=== PATIENT | male | born 1945 | race Caucasian/White ===

== ENCOUNTER 2018-05-09 06:17 | Inpatient (IN) ==
[~2018-05-09 06:17] MED LIST: MORPHINE SULFATE 15 MG TABLET.SA PO PRN; ROPIVACAINE HCL/PF 100 MG, EPINEPHrine 0.2 MG, KETOROLAC TROMETHAMINE 30 MG in NORMAL S... IJ PRN; TRANEXAMIC ACID 1,000 MG in NORMAL SALINE 100 ML IV PRN; ceFAZolin SODIUM 1 GM VIAL IV PRN
[2018-05-09] MEDS: RINGER'S SOLUTION,LACTATED 1,000 ML IV PRN ×2 (07:08→09:23)
--- NOTE | 2018-05-09 07:22 | ANES ---
Anesthesia Pre Procedure Eval Vitals/Labs: Last Vital Signs Temp 36.9 C 05/09/18 06:35 Pulse 63 05/09/18 06:35 Resp 16 05/09/18 06:35 BP 156/83 H 05/09/18 06:35 Pulse Ox 97 05/09/18 06:35 HOME MEDICATIONS Ascorbic Acid [Vitamin C] 1,000 mg PO DAILY 05/01/14 [Last Taken Unknown] Garlic [Odor Free Garlic] 1,000 mg PO DAILY 05/01/14 [Last Taken Unknown] Hydrochlorothiazide [Microzide] 12.5 mg PO DAILY 05/01/14 [Last Taken 05/09/18 04:00] Labetalol HCl [Trandate] 200 mg PO BID 05/01/14 [Last Taken 05/09/18 04:00] Lisinopril [Prinivil] 20 mg PO BID 05/01/14 [Last Taken 05/09/18 04:00] Multivitamins [Multivitamin Brigido] 1 cap PO DAILY 05/01/14 [Last Taken Unknown] Potassium Chloride [K-Dur] 20 meq PO DAILY 05/01/14 [Last Taken Unknown] Spironolactone [Aldactone] 25 mg PO DAILY 05/01/14 [Last Taken 05/09/18 04:00] rOPINIRole HCL [Requip] 1 mg PO HS 05/01/14 [Last Taken Unknown] Calcium Carbonate/Vitamin D3 [Calcium 600 + D Tablet] 1 ea PO DAILY 05/13/15 [Last Taken Unknown] clonazePAM [Klonopin] 1 mg PO HS 05/13/15 [Last Taken Unknown] simvastatin 20 mg tablet 20 mg PO HS #90 tab 02/06/18 [Last Taken Unknown] clotrimazole 1 % topical cream 1 applic TP BID 28 Days #28 g 03/23/18 [Last Taken Unknown] levothyroxine 75 mcg tablet 75 mcg PO DAILY #90 tab 03/28/18 [Last Taken Unknow n] amlodipine 10 mg tablet 10 mg PO DAILY #90 tab 05/04/18 [Last Taken 05/09/18 04:00] Allergies/Adverse Reactions: Allergies Allergy/AdvReac Type Severity Reaction Status Date / Time No Known Allergies Allergy Verified 05/09/18 06:46 - Planned Procedure Planned Procedure: L Arthroplasty Total Hip Cement/Non-Cement Medication List Reviewed:: Yes Allergies Verified: Yes Medical History (Last Reviewed 05/09/18 @ 07:17 by Fan Denis CRNA) Bilateral carpal tunnel syndrome Onset Date: ~03/2015 Edema Onset Date: ~2007 Erectile dysfunction Onset Date: Unknown History of colonic polyps Onset Date: Unknown Hyperlipidemia Onset Date: ~12/2012 Hypertension Onset Date: ~12/2012 Hypokalemia Onset Date: Unknown Hypothyroid Onset Date: ~12/2012 Malignant neoplasm prostate Onset Date: ~12/2012 Obesity Onset Date: Unknown Obstructive sleep apnea Onset Date: ~12/2012 Restless leg syndrome Onset Date: ~12/2012 Stress bladder incontinence, male Onset Date: Unknown Surgical History (Last Reviewed 05/09/18 @ 07:17 by Fan Denis CRNA) H/O prostatectomy Onset Date: ~2010 History of appendectomy Onset Date: Unknown History of bilateral carpal tunnel release Onset Date: ~03/2015 History of esophageal dilatation Onset Date: ~09/2011 History of esophagogastroduodenoscopy (EGD) Onset Date: ~09/2011 History of tonsillectomy Onset Date: Unknown Hx laparoscopic cholecystectomy Onset Date: ~2004 Hx of total knee arthroplasty Onset Date: ~05/2015 Normal colonoscopy Onset Date: ~05/2014 History of facial surgery Onset Date: 01/2018 skin cancer removed from forehead by Dr. Martinez Family History (Last Reviewed 05/09/18 @ 07:18 by Fan Denis CRNA) Father , age 70 Cancer cancer of unknown origin Hypertension Mother Hypothyroidism Cancer leukemia Sister , age 70's Cirrhosis of liver - Family Anesthesia History Family History:: no untoward family reactions to anesthesia, no familial bleeding tendencies, no family history of clotting disorders, no family history of premature - Airway/Neck/Teeth Within Normal Limits:: Yes Teeth Condition: Intact, Incisor Notching Mallampatti Score: 2 Thyromental (T-M) distance: > 6 cm Mandibulo Hyoid distance: > 3 cm - Respiratory Respiratory: lungs clear Smoking Status: Never smoker Discussed smoking cessation including day of surgery: No Sleep Apnea currently treated: Yes Sleep Apnea by current assessment: No Discussed Risks/Treatment of COLTON: No - Cardiovascular Tolerates Activity: Fair Heart Sounds: S1 & S2, Regular - Anesthesia Assessment and Plan ASA Class: PS, II Anesthesia Type Plan: Spinal
[2018-05-09] MEDS ORDERED: MAGNESIUM HYDROXIDE 30 ML UDC PO PRN (09:51)
[2018-05-09] MEDS ORDERED: ONDANSETRON HCL/PF 2 MG/ML VIAL IV PRN (09:51)
[2018-05-09] MEDS ORDERED: MAG HYDROX/ALUMINUM HYD/SIMETH 30 ML UDC PO PRN (09:51)
[2018-05-09] MEDS ORDERED: diphenhydrAMINE HCL 50 MG/ML VIAL IV PRN (09:51)
[2018-05-09] MEDS ORDERED: MORPHINE SULFATE 2 MG/ML DISP.SYRIN IV PRN (09:51)
[2018-05-09] MEDS ORDERED: ACETAMINOPHEN 500 MG TABLET PO PRN (09:51)
[2018-05-09] MEDS ORDERED: ZOLPIDEM TARTRATE 5 MG TABLET PO PRN (09:51)
--- NOTE | 2018-05-09 09:59 | OR ---
Operative Report - Dictated Report Narrative: Date: 05/09/2018 Preoperative diagnosis: Left hip degenerative joint disease. Postoperative diagnosis: Left hip degenerative joint disease. Procedure: Left Total hip arthroplasty. Surgeon: Pepe Beaulieu M.D. Plant Care Worker: Apolinar Nolasco PA-C Anesthesia: Spinal and local periarticular joint injection. Complications: None Specimens: Bone for disposal. Estimated blood loss: 100 milliliters. Retained implants: Depuy Landis size 5 femoral stem high offset. Size 54 millimeter outside diameter 3-hole [place] Gription acetabular cup. 54 millimeter outside by 36 millimeter inside diameter highly cross-linked acetabular liner. 36 millimeter diameter +8.5 millimeter cobalt chromium femoral head. Cancellous 6.5mm screw 30 millimeter length Indications: Mr. Jama is a 73-year-old gentleman who has had long-standing left hip pain and arthrosis. This patient was followed in my clinic for period of time with significant complaints of left hip pain consistent with arthritic changes. He failed conservative measures including but not limited to activity modification, passage of time, medications, and other conservative measures. Patient wished to proceed with surgical treatment. The risks, benefits, and alternatives were discussed in clinic. The risks of , blood clots, bleeding, infection, nerve/tendon blood vessel/ injury, malposition of components, dislocation and/or instability of joint, intraoperative fracture, postoperative limited range of motion, persistent pain, failure of components, and need for additional procedures. Patient wished to proceed. Consent was obtained after answering all questions. Procedure: After marking the correct extremity on the floor, the patient was taken to the operating room. A timeout was performed. IV antibiotics consisting of Ancef were administered prior to the procedure. A spinal anesthetic was induced by anesthesia. A Salas catheter was inserted. The patient was then transitioned to a lateral position on a well-padded pegboard. An axillary roll was placed. The head was in neutral position. The non- operative down leg was well-padded with SCD and JOHNNY hose in place. The arms were supported and padded to protect from any undue pressure on the bony prominences and nerves. A well-padded anterior and posterior pelvic and chest posts were secured in order to maintain a stable position of the pelvis. This was placed so that the pelvis was perpendicular to the floor. The body was in line with the pelvis. Once it was felt that we had protected all the bony prominences and the patient was well secured with a safety belt as well, the leg was pre-scrubbed with alcohol, prepped and draped in a standard sterile fashion. A standard anterior lateral hip incision was marked out over the greater trochanter. Ioban drapes were then placed. The skin incision was then made. Sharp dissection with a scalpel utilizing cautery for hemostasis was carried out down to the gluteus and iliotibial band fascia. This was split in line with the skin incision. The greater trochanter bursa was excised. The anterior and posterior margins of the abductor tendon were identified. The anterior 1/2-1/3 of the tendon was tagged and reflected off the greater trochanter leaving a sleeve of tendon for repair at the completion of the case. This exposed the underlying hip joint capsule. A limb length stitch was placed in the skin and referencedd off a veronique on the greater trochanter for evaluation of intraoperative limb lengths. An inverted T-type capsulotomy was made extending this up to the brim of the acetabulum. Using Homans to assist with elevation of the soft tissues off the anterior, superior, and inferior aspects of the femoral neck, the hip was then placed in a figure 4 position and the femoral head was dislocated. With the leg in an externally rotated and adducted position, the cutting flag was utilized in order to veronique for a standard femoral neck cut approximately a fingerbreadth above the level of the lesser trochanter. This was done with reference to pre-operative films and overall alignment. This was done while protecting the surrounding soft tissues with Homans. The femoral head was then removed and sized for guidance on preparation of the acetabulum. It was noted that there was loss of articular cartilage on both the femoral head and weightbearing portions of the acetabulum. We then returned the leg to the table and turned our attention to the acetabulum. While protecting the surrounding soft tissues, the labrum and remaining tissue in the fovea were excised using a scalpel and cautery. A series of reamers up to size 54 millimeter were utilized to prepare the acetabulum. The final reamer had good purchase and exposed the bleeding subchondral bone. The acetabulum was then thoroughly irrigated ensuring that all bony and cartilaginous materials were removed, and the final acetabular shell was impacted into place. This was placed in approximately 45 degrees of abduction and 20 degrees of anteversion utilizing the outrigger and body axis for alignment. This had a good press fit. 1 6.5mm cancellous screw was placed in the superior posterior quadrant of the acetabulum. The shell was then thoroughly irrigated and the final polyethylene was impacted into place ensuring that it seated completely. This was then protected with a sponge while we returned our attention to the femur. With the leg in a figure 4 position, utilizing Homans for soft tissue protection, a box cutting osteotome, followed by Charnley awl, followed by serial reamers and broaches were utilized in order to prepare the femur. It was found that a size 5 broach gave good axial and rotational stability. The calcar reamer was utilized in order to clean up the cut edges. The proximal femur was visualized to ensure that there were no signs of fracture. A series of heads and necks were trialed. It was found that a high offset neck and a + 8.5 femoral head gave good overall stability. There was minimal longitudinal instability. With the leg in the position of sleep, the femoral head was well covered. Hip range of motion was able to reach full extension and external rotation to greater than 75 degrees prior to impingement along the posterior acetabulum. The hip was able to be flexed to greater than 90 degrees with internal rotation greater than 60 degrees prior to anterior impingement. The limb lengths were near equal based on comparison to the contralateral side and the prior placed limb length stitch. At this point it was felt these were the appropriately sized femoral components as well as neck and femoral head. The trial implants were removed. The femur was thoroughly irrigated. The final implants were impacted into place, and the hip was reduced. After ensuring that there was no damage to the proximal femur, the standard periarticular joint injection of ropivacaine, Toradol, and epinephrine were injected into the joint capsule and surrounding soft tissues. Anesthesia then administered intravenous tranexamic acid. The capsule was repaired with a single interrupted #1 Vicryl. The abductor tendon was repaired to the greater trochanter utilizing #5 Ethibond through drill holes. This was oversewn with #1 Vicryl. The fascia was closed with interrupted #1 Vicryl. The wounds were thoroughly irrigated as we closed in layers. The deep and subcutaneous fat layers were closed with 0 and 3-0 Vicryl respectively. The subcutaneous tissue was closed with a running 3-0 Vicryl and the skin with running 3-0 Monocryl subcutaneous and liliam. All sponge, needle, blade, and instrument counts were correct prior to closing the wounds. Sterile dressings consisting of Xeroform, 4 x 4's, and tape were applied. The patient was awoken and transferred to her hospital bed and then to the postanesthesia care unit in stable condition. Postoperative condition: The plan is to admit to the medical/surgical inpatient floor postoperatively. There will be a projected 1 to 3 day hospital stay. Postoperatively 24 hours of IV antibiotics, pain control, physical therapy, occupational therapy, and medical comanagement will be utilized. Patient will be weightbearing as tolerated with anterior hip precautions. Postoperative films will be obtained in the recovery room.
--- NOTE | 2018-05-09 10:07 | ANES ---
Post Anesthesia Discharge - Transfer of Care Transfer of Care handoff given to nurse: Yes - Discharge from PACU Discharge from PACU when meets criteria: Yes - Discharge to ASU Discharge to ASU-no complications/pt stable: Yes
[2018-05-09] MEDS: KETOROLAC TROMETHAMINE 15 MG/ML VIAL IV SCH ×3 (11:35→21:04)
[2018-05-09] MEDS: ceFAZolin SODIUM 1 GM in DEXTROSE 5 % IN WATER 50 ML IV SCH ×4 (11:36→17:03)
[2018-05-09] MEDS: DEXTROSE 5%-LACTATED RINGERS 1,000 ML IV PRN ×2 (12:35→21:14)
[2018-05-09] MEDS: oxyCODONE HCL/ACETAMINOPHEN 1 TAB TABLET PO PRN ×2 (12:43→19:31)
--- NOTE | 2018-05-09 13:33 | ANES ---
Post Anesthesia Assessment - Vital Signs Vitals: Last Vital Signs Temp 36.1 C 05/09/18 12:17 Pulse 63 05/09/18 12:17 Resp 17 05/09/18 12:17 BP 140/77 05/09/18 12:17 Pulse Ox 92 L 05/09/18 12:17 Airway Patency: Normal - Mental Status Level Of Consciousness: Awake - Pain Level Pain Score: 0 - N/V Assessment Nausea/Vomiting Presence: None Dehydration:: No
[2018-05-09] MEDS: LISINOPRIL 20 MG TABLET PO SCH (20:58)
[2018-05-09] MEDS: MORPHINE SULFATE 15 MG TABLET.SA PO SCH (20:58)
[2018-05-09] MEDS: LABETALOL HCL 200 MG TABLET PO SCH (20:59)
[2018-05-09] MEDS: SIMVASTATIN 20 MG TABLET PO SCH (21:00)
[2018-05-09] MEDS: rOPINIRole HCL 1 MG TABLET PO SCH (21:00)
[2018-05-09] MEDS: SENNOSIDES/DOCUSATE SODIUM 1 TAB TABLET PO SCH (21:00)
[2018-05-09] MEDS: CLOTRIMAZOLE 15 APPL TUBE TP SCH (21:03)
[2018-05-09] MEDS: clonazePAM 1 MG TABLET PO SCH (21:08)
[2018-05-10] MEDS: ceFAZolin SODIUM 1 GM in DEXTROSE 5 % IN WATER 50 ML IV SCH ×2 (00:12)
[2018-05-10] MEDS: KETOROLAC TROMETHAMINE 15 MG/ML VIAL IV SCH ×4 (04:14→22:21)
[2018-05-10 05:43] LABS: Hematocrit 35.7 % (42.0-52.0); Mean Cell Volume 91.8 fl (78-100); Mean Corpuscular Hemoglobin 30.8 pg (27-31); Mean Corpuscular Hgb Conc 33.6 g/dl (32-36); Mean Platelet Volume 10.4 fl (8-11.3); Platelet Count 178 K/mm3 (150-450); Red Blood Count 3.89 M/mm3 (4.7-6.0); Red Cell Distribution Width 12.7 % (11.5-14.0)
[2018-05-10 05:49] LABS: Anion Gap 8.5 mmol/L (6.8-13.8); Calcium * 8.2 mg/dL (7.9-10.9); Carbon Dioxide 30.2 mmol/L (24-32.6); Estimated Creat Clear 45.9; Potassium 3.7 mmol/L (3.4-4.6)
[2018-05-10] MEDS: DEXTROSE 5%-LACTATED RINGERS 1,000 ML IV PRN (05:57)
[2018-05-10] MEDS: oxyCODONE HCL/ACETAMINOPHEN 1 TAB TABLET PO PRN ×2 (07:16→14:02)
--- NOTE | 2018-05-10 08:13 | DS ---
(1) Status post total hip replacement, left Problem: Acute (2) Acute blood loss anemia Problem: Acute (3) GERD (gastroesophageal reflux disease) Problem: Chronic (4) Hyperlipidemia Problem: Chronic (5) Hypertension Problem: Chronic (6) Hypothyroid Problem: Chronic (7) Obstructive sleep apnea Problem: Chronic (8) Restless leg syndrome Problem: Chronic Description of Stay: Mr. Jama was admitted to the floor after undergoing left total hip arthroplasty. Tolerated this well. Was admitted to the floor postoperatively for 24 hours of IV antibiotics, pain control, medical comanagement, and occupational and physical therapy. OT and PT were consulted to assist with activities of daily living and ambulation. Was made weightbearing as tolerated with anterior hip precautions. Pain was initially controlled with IV regimen. This was transitioned to oral once tolerating a by mouth intake. Was resumed on home diet and medications. Had a Salas catheter inserted and the operating room which was discontinued on postoperative day 1. Lovenox SCD and JOHNNY hose were utilized for DVT prophylaxis. Vital signs remained stable to the hospital course. Serial labs were obtained which showed a final hemoglobin of 12.0 grams. BMP was reviewed and was stable. Physical examination throughout the hospital course showed an extremity that had sensation that was intact to light touch, palpable pulses, a benign wound, motor intact to the toes, ankle, and knee. Once an oral pain regimen was tolerated and physical therapy goals were met, it was felt that they were stable for discharge to home. Instructions: Continue with weightbearing as tolerated and anterior hip precautions with no active abduction. Do not bathe or soak the wound. If there is any drainage from the wound keep the wound clean and dry and cover with dry gauze and tape. Change every 2-3 days as needed if there is any drainage. Cover wound while showering. Continue with physical therapy. Resume home diet. Report any fever over 101.5 Fahrenheit, uncontrolled pain, increased drainage, foul odor of drainage, new or increased calf pain or shortness of breath, or any other significant complaints. A 325mg dialy aspirin will be started after finishing anticoagulation if not allergic. Continue with JOHNNY hose on the operative extremity until instructed otherwise. No driving until instructed otherwise. Follow up in approximately 10-14 days. Procedures Performed: see notes below List Procedures: Left total hip arthroplasty Results and Findings: Lab Pending Results 05/10/18 05:37: WBC 7.0, RBC 3.89 L, Hgb 12.0 L, Hct 35.7 L, MCV 91.8, MCH 30.8, MCHC 33.6, RDW 12.7, Plt Count 178, MPV 10.4 05/10/18 05:37: Sodium 140, Plasma Sodium 140, Potassium 3.7, Chloride 105, Carbon Dioxide 30.2, Anion Gap 8.5, BUN 30 H, Creatinine 1.58 H, Est GFR (Non-Af Amer) 46 L, BUN/Creatinine Ratio 19.0, Random Glucose 123 H, Calcium 8.2 Discharge Location: Home Disposition: Home self-care Condition: Good Discharge Activity: Weight bearing, Other - anterior hip precautions with no active abduction Discharge Diet: General/regular food Referrals: John Crews DO [Primary Care Provider] - Prescriptions (Any new or edited meds): Enoxaparin Sodium [Lovenox] 40 mg SC Q24H #7 disp.syrin Morphine Sulfate [Ms Contin] 15 mg PO Q12H #20 tablet.sa oxyCODONE HCL/ACETAMINOPHEN [Percocet 5 MG/325 MG] 2 tab PO Q4H PRN #60 tablet PRN Reason: Moderate Pain (Pain Scale 4-6) Sennosides/Docusate Sodium [Senokot-S] 2 tab PO HS #60 tablet Complete Home Medications List: Complete Home Medication List: Ascorbic Acid [Vitamin C] 1,000 mg PO DAILY 05/01/14 Garlic [Odor Free Garlic] 1,000 mg PO DAILY 05/01/14 Hydrochlorothiazide [Microzide] 12.5 mg PO DAILY 05/01/14 Labetalol HCl [Trandate] 200 mg PO DAILY 05/01/14 Lisinopril [Prinivil] 20 mg PO BID 05/01/14 Multivitamins [Multivitamin Brigido] 1 cap PO DAILY 05/01/14 Potassium Chloride [K-Dur] 20 meq PO DAILY 05/01/14 Spironolactone [Aldactone] 25 mg PO DAILY 05/01/14 rOPINIRole HCL [Requip] 1 mg PO HS 05/01/14 Calcium Carbonate/Vitamin D3 [Calcium 600 + D Tablet] 1 ea PO DAILY 05/13/15 clonazePAM [Klonopin] 1 mg PO HS 05/13/15 simvastatin 20 mg tablet 20 mg PO HS #90 tab 02/06/18 clotrimazole 1 % topical cream 1 applic TP BID 28 Days #28 g 03/23/18 levothyroxine 75 mcg tablet 75 mcg PO DAILY #90 tab 03/28/18 amlodipine 10 mg tablet 10 mg PO DAILY #90 tab 05/04/18 Enoxaparin Sodium [Lovenox] 40 mg SC Q24H #7 disp.syrin 05/10/18 Morphine Sulfate [Ms Contin] 15 mg PO Q12H #20 tablet.sa 05/10/18 Sennosides/Docusate Sodium [Senokot-S] 2 tab PO HS #60 tablet 05/10/18 oxyCODONE HCL/ACETAMINOPHEN [Percocet 5 MG/325 MG] 2 tab PO Q4H PRN #60 tablet 05/10/18 Amb Orders for Discharge: PT Evaluation and Treatment* Facility: [facility], Location: Rehabilitation Services
[2018-05-10] MEDS: ENOXAPARIN SODIUM 40 MG/0.4 ML SYRG SC SCH (09:05)
[2018-05-10] MEDS: CALCIUM CARBONATE/VITAMIN D3 1 TAB TABLET PO SCH (09:06)
[2018-05-10] MEDS: SPIRONOLACTONE 25 MG TABLET PO SCH (09:06)
[2018-05-10] MEDS: Garlic 1,000 MG PO SCH (09:07)
[2018-05-10] MEDS: POTASSIUM CHLORIDE 20 MEQ TABLET.SA PO SCH (09:07)
[2018-05-10] MEDS: CLOTRIMAZOLE 15 APPL TUBE TP SCH ×2 (09:08→20:25)
[2018-05-10] MEDS: HYDROCHLOROTHIAZIDE 12.5 MG CAPSULE PO SCH (09:08)
[2018-05-10] MEDS: MULTIVITAMINS 1 CAP CAPSULE PO SCH (09:09)
[2018-05-10] MEDS: amLODIPine BESYLATE 10 MG TABLET PO SCH (09:09)
[2018-05-10] MEDS: MORPHINE SULFATE 15 MG TABLET.SA PO SCH (09:09)
[2018-05-10] MEDS: ASCORBIC ACID 500 MG TABLET PO SCH (09:10)
[2018-05-10] MEDS: LABETALOL HCL 200 MG TABLET PO SCH ×2 (09:10→20:13)
[2018-05-10] MEDS: LEVOTHYROXINE SODIUM 75 MCG TABLET PO SCH (09:10)
[2018-05-10] MEDS: LISINOPRIL 20 MG TABLET PO SCH ×2 (09:10→20:14)
[2018-05-10] MEDS: clonazePAM 1 MG TABLET PO SCH (20:10)
[2018-05-10] MEDS: rOPINIRole HCL 1 MG TABLET PO SCH (20:12)
[2018-05-10] MEDS: SENNOSIDES/DOCUSATE SODIUM 1 TAB TABLET PO SCH (20:12)
[2018-05-10] MEDS: SIMVASTATIN 20 MG TABLET PO SCH (20:15)
[2018-05-11] MEDS: KETOROLAC TROMETHAMINE 15 MG/ML VIAL IV SCH (04:37)
[2018-05-11] MEDS: LEVOTHYROXINE SODIUM 75 MCG TABLET PO SCH (07:15)
[2018-05-11] MEDS: ENOXAPARIN SODIUM 40 MG/0.4 ML SYRG SC SCH (10:09)
[2018-05-11] MEDS: ASCORBIC ACID 500 MG TABLET PO SCH (10:10)
[2018-05-11] MEDS: LISINOPRIL 20 MG TABLET PO SCH (10:11)
[2018-05-11] MEDS: CLOTRIMAZOLE 15 APPL TUBE TP SCH (10:12)
[2018-05-11] MEDS: POTASSIUM CHLORIDE 20 MEQ TABLET.SA PO SCH (10:13)
[2018-05-11] MEDS: Garlic 1,000 MG PO SCH (10:14)
[2018-05-11] MEDS: amLODIPine BESYLATE 10 MG TABLET PO SCH (10:14)
[2018-05-11] MEDS: CALCIUM CARBONATE/VITAMIN D3 1 TAB TABLET PO SCH (10:14)
[2018-05-11] MEDS: HYDROCHLOROTHIAZIDE 12.5 MG CAPSULE PO SCH (10:14)
[2018-05-11] MEDS: MULTIVITAMINS 1 CAP CAPSULE PO SCH (10:15)
[2018-05-11] MEDS: LABETALOL HCL 200 MG TABLET PO SCH (10:15)
[2018-05-11] MEDS: SPIRONOLACTONE 25 MG TABLET PO SCH (10:15)
[2018-05-11 14:01] VITALS: BP 142/73
== END 2018-05-11 11:20 | disposition home or self-care (01) | DRG 470 ==
LOC: MS 06:17
PROVIDERS: ADMIT Orthopaedic Surgery; ATTEND Orthopaedic Surgery
DX: D62 Acute posthemorrhagic anemia; Z96.659 Presence of unspecified artificial knee joint; K21.9 Gastro-esophageal reflux disease without esophagitis; G47.33 Obstructive sleep apnea (adult) (pediatric); R41.0 Disorientation, unspecified; I10 Essential (primary) hypertension; Z68.38 Body mass index [BMI] 38.0-38.9, adult; Z23 Encounter for immunization; M16.12 Unilateral primary osteoarthritis, left hip; E66.9 Obesity, unspecified; E03.9 Hypothyroidism, unspecified; G25.81 Restless legs syndrome; E78.5 Hyperlipidemia, unspecified
CPT/HCPCS: 36415; 73502; 80048; 85027; 90686; 94660; 97110; 97116; 97161; 97166; 97530; 97535

== ENCOUNTER 2020-11-10 08:42 | Observation (INO) ==
[~2020-11-10 08:42] MED LIST changes: -ROPIVACAINE HCL/PF 100 MG, EPINEPHrine 0.2 MG, KETOROLAC TROMETHAMINE 30 MG in NORMAL S... IJ PRN; +ROPIVACAINE/CLONIDIN/KETOROLAC 50 ML SYRINGE IJ PRN; -TRANEXAMIC ACID 1,000 MG in NORMAL SALINE 100 ML IV PRN; +TRANEXAMIC ACID IN NACL,ISO-OS 1,000 MG/100 ML BAG IV PRN
[2020-11-10] MEDS ORDERED: BUPIVACAINE HCL/EPINEPHRINE 50 ML VIAL IJ ONE (08:48)
[2020-11-10] MEDS ORDERED: LIDOCAINE HCL 20 ML VIAL ONE (08:48)
[2020-11-10] MEDS ORDERED: MIDAZOLAM HCL/PF 5 MG/ML VIAL ONE (08:48)
[2020-11-10] MEDS ORDERED: BUPIVACAINE HCL/PF 10 ML VIAL ONE (08:49)
[2020-11-10] MEDS ORDERED: PROPOFOL VIAL IV ONE (08:49)
[2020-11-10] MEDS: RINGER'S SOLUTION,LACTATED 1,000 ML IV PRN ×2 (09:00→11:20)
[2020-11-10] MEDS ORDERED: ceFAZolin SODIUM 1 GM VIAL ONE (09:33)
[2020-11-10] MEDS ORDERED: ROPIVACAINE/CLONIDIN/KETOROLAC 50 ML SYRINGE IJ ONE (09:33)
--- NOTE | 2020-11-10 09:46 | ANES ---
Anesthesia Pre Procedure Eval Vitals/Labs: Last Vital Signs Temp 36.5 C 11/10/20 08:45 Pulse 62 11/10/20 08:45 Resp 14 11/10/20 08:45 BP 137/72 11/10/20 08:45 Pulse Ox 98 11/10/20 08:45 HOME MEDICATIONS Ascorbic Acid [Vitamin C] 1,000 mg PO DAILY 05/01/14 [Last Taken 08/01/19] Garlic [Odor Free Garlic] 1,000 mg PO DAILY 05/01/14 [Last Taken 07/31/19] Hydrochlorothiazide [Microzide] 12.5 mg PO DAILY 05/01/14 [Last Taken 11/10/20 07:00] Multivitamins [Multivitamin Brigido] 1 cap PO DAILY 05/01/14 [Last Taken 07/31/19] Spironolactone [Aldactone] 25 mg PO DAILY 05/01/14 [Last Taken 08/01/19] rOPINIRole HCL [Requip] 1 mg PO HS 05/01/14 [Last Taken 07/31/19] Calcium Carbonate/Vitamin D3 [Calcium 600 + D Tablet] 1 ea PO DAILY 05/13/15 [Last Taken 07/31/19] clonazePAM [Klonopin] 1 mg PO HS 05/13/15 [Last Taken 07/31/19] polyethylene glycol 3350 17 gram/dose oral powder 17 g PO DAILY PRN g 05/22/18 [Last Taken 12/04/18] aspirin 81 mg tablet,delayed release 81 mg PO DAILY 07/24/18 [Last Taken 11/03/20 07:00] CPAP Headgear 0 .ROUTE .MEDSUPPLY #1 ea 07/02/19 [Last Taken Unknown] CPAP Mask 0 .ROUTE .MEDSUPPLY #1 ea 07/02/19 [Last Taken Unknown] simvastatin 20 mg tablet 20 mg PO HS #90 tab 01/24/20 [Last Taken Unknown] labetalol 200 mg tablet 200 mg PO BID #180 tab 02/05/20 [Last Taken 11/10/20 07:00] lisinopril 20 mg tablet 20 mg PO BID #180 tab 02/10/20 [Last Taken 11/10/20 07:00] potassium chloride 20 mEq tablet,extended release(part/cryst) 20 meq PO DAILY #90 tab 02/10/20 [Last Taken Unknown] docusate sodium 100 mg capsule 100 mg PO DAILY #30 cap 03/24/20 [Last Taken Unknown] hydrocortisone 1 % topical cream 1 applic TP BID #28.4 g 03/24/20 [Last Taken Unknown] amlodipine 10 mg tablet 10 mg PO DAILY #90 tab 05/15/20 [Last Taken Unknown] levothyroxine 75 mcg tablet 75 mcg PO DAILY #90 tab 06/08/20 [Last Taken Unknown] Allergies/Adverse Reactions: Allergies Allergy/AdvReac Type Severity Reaction Status Date / Time No Known Allergies Allergy Verified 11/10/20 09:04 - Planned Procedure Planned Procedure: Right Arthroplasty Total Knee Medication List Reviewed:: Yes Allergies Verified: Yes Medical History (Last Reviewed 11/10/20 @ 09:44 by Frank Schneider CRNA) Primary osteoarthritis of right knee (Chronic) COVID-19 vaccine series completed (Acute) COVID-19 vaccine administered (Acute) Right shoulder injury (Acute) Rotator cuff tear, possible labral tear CPAP (continuous positive airway pressure) dependence Edema Onset Date: ~2007 Erectile dysfunction Onset Date: Unknown Hypokalemia Onset Date: Unknown Lives with spouse Malignant neoplasm prostate Onset Date: ~12/2012 No history of alcohol use Non-tobacco user Hip osteoarthritis Onset Date: Unknown Hyperlipidemia Onset Date: ~12/2012 Hypertension Onset Date: ~12/2012 Hypothyroid Onset Date: ~12/2012 Obesity Onset Date: Unknown Obstructive sleep apnea Onset Date: ~12/2012 Restless leg syndrome Onset Date: ~12/2012 Stress bladder incontinence, male Onset Date: Unknown Bilateral carpal tunnel syndrome Onset Date: ~03/2015 History of colonic polyps Onset Date: Unknown Surgical History (Last Reviewed 11/10/20 @ 09:44 by Frank Schneider CRNA) S/P shoulder surgery Onset Date: ~08/01/19 Right shoulder arthroscopy with subscapularis repair, biceps tenotomy Dr. Gutierrez H/O prostatectomy Onset Date: ~08/2010 H/O total hip arthroplasty Onset Date: 05/09/18 Left Total hip arthroplasty. Dr. Beaulieu History of appendectomy Onset Date: Unknown childhood History of bilateral carpal tunnel release Onset Date: ~03/2015 History of colonoscopy Onset Date: 12/06/18 07/12/97, 10/28/98, 05/31/00, 06/24/04, 12/19/07 [place]-diverticulosis. 05/09/14 Tinguely-normal. Recheck 10 yrs. 12/06/18 Nick-w/hemorrhoidal banding x3. History of esophageal dilatation Onset Date: 09/26/11 Mitesh History of esophagogastroduodenoscopy (EGD) Onset Date: 09/26/11 06/24/04. 09/26/11 Mitesh-w/dilation. mild chronic gastritis, H.pylor negative. History of excision of lesion Onset Date: 10/08/08 10/08/08 Vern-skin lesion left hand-superficial perivascular chronic inflammation and dermal fibrosis. History of facial surgery Onset Date: 01/2018 skin cancer removed from forehead by Dr. Martinez History of tonsillectomy Onset Date: Unknown Hx laparoscopic cholecystectomy Onset Date: ~2004 Hx of total knee arthroplasty Onset Date: 05/25/15 [place] Family History (Last Reviewed 11/10/20 @ 09:44 by Frank Schneider CRNA) Father , age 70-cancer Cancer cancer of unknown origin-possible stomach Hypertension Mother , age 86-leukemia Hypothyroidism Cancer leukemia-dx age 60's Daughter Unknown whether patient has any health problems Son Unknown whether patient has any health problems - Family Anesthesia History Family History:: no untoward family reactions to anesthesia - Airway/Neck/Teeth Within Normal Limits:: Yes Teeth Condition: intact Neck Exam: full range of motion Mallampatti Score: 3 Thyromental (T-M) distance: > 6 cm Mandibulo Hyoid distance: > 3 cm - Respiratory Respiratory History: CPAP/BiPAP home use Respiratory Physical: lungs clear Smoking Status: Never smoker Sleep Apnea currently treated: Yes Sleep Apnea by current assessment: Yes - Cardiovascular Cardiac History: hypertension Tolerate Activity: Fair Heart Sounds: S1 & S2, Regular - Gastrointestinal NPO since: [place] - Anesthesia Assessment and Plan ASA Class: PS, III Anesthesia Type Plan: Spinal - adductor canal block Planned difficult intubation/equipment available: No
[2020-11-10] MEDS ORDERED: ONDANSETRON HCL/PF 2 MG/ML VIAL IV PRN (11:57)
[2020-11-10] MEDS ORDERED: diphenhydrAMINE HCL 50 MG/ML VIAL IV PRN (11:57)
[2020-11-10] MEDS ORDERED: ZOLPIDEM TARTRATE 5 MG TABLET PO PRN (11:57)
[2020-11-10] MEDS ORDERED: ACETAMINOPHEN 500 MG TABLET PO PRN (11:57)
[2020-11-10] MEDS ORDERED: MAGNESIUM HYDROXIDE 30 ML UDC PO PRN (11:57)
[2020-11-10] MEDS ORDERED: DEXTROSE 5%-LACTATED RINGERS 1,000 ML IV PRN (11:57)
[2020-11-10] MEDS ORDERED: MAG HYDROX/ALUMINUM HYD/SIMETH 30 ML UDC PO PRN (11:57)
[2020-11-10] MEDS ORDERED: MORPHINE SULFATE 2 MG/ML DISP.SYRIN IV PRN (11:57)
--- NOTE | 2020-11-10 11:57 | OR ---
Operative Report - Dictated Report Narrative: Date: 11/10/2020 Preoperative diagnosis: Right knee degenerative joint disease. Postoperative diagnosis: Right knee degenerative joint disease. Procedure: Right total knee arthroplasty. Surgeon: Pepe Beaulieu M.D. Furniture Restorer: Joseph Cummings PA-C (provided and essential set of skilled, educated hands that assisted with transfer, positioning, prepping, draping, manipulation, retraction, placement of jigs, injection, insertion of implants, irrigation, closure wounds, and dressings all of which could not be performed by the available surgical crew) Anesthesia: Spinal with regional block and local periarticular joint injection. Complications: None Specimens: Bone. Estimated blood loss: Minimal. Tourniquet time: 85 minutes at 325 millimeters of mercury. Retained implants: Depuy Attune size 8 right lugged cemented posterior stabilized femoral component. Size 7 fixed-bearing cemented tibial platform. 8 by 6 millimeter posterior stabilized cross-linked tibial insert. 41 millimeter medialized patella button. Indications: Mr. Jama is a 75-year-old gentleman who has had longstanding right knee pain and arthrosis. This patient was followed in my clinic for period of time with significant complaints of right knee pain consistent with arthritic changes. He had failed conservative measures including, but not limited to, activity modification, passage of time, medications, and other conservative measures. Patient wished to proceed with surgical treatment. The risks, benefits, and alternatives were discussed in clinic. The risks of , blood clots, bleeding, infection, nerve/tendon blood vessel/ injury, malposition of components, intraoperative fracture, postoperative limited range of motion, persistent pain, failure of components, and need for additional procedures. Patient wished to proceed consent was obtained after answering all questions. Procedure: After marking the correct extremity on the floor, the patient was taken to the operating room. A timeout was performed. IV antibiotics consisting of Ancef were administered prior to the procedure. A regional followed by spinal anesthetic was induced by anesthesia, per my request, on the operative table with all bony prominences well-padded. Salas catheter was placed, and a bump was placed under the operative side buttock. SCDs and JOHNNY hose were utilized on the nonoperative leg. A well-padded tourniquet was applied to the operative thigh. The operative leg was then pre-scrubbed with alcohol, prepped, and draped in a standard sterile fashion. After exsanguinating the extremity with an Esmarch bandage, the tourniquet was inflated. After marking out the anterior knee for standard incision centered over the patella, the skin was incised and dissected down to the joint retinaculum. The joint retinaculum was marked out as well as the horizontal axis of the patella, and a standard medial parapatellar arthrotomy was then made. The most proximal aspect of the quadriceps tendon and the patella tendon insertion were protected from release. A partial synovectomy was performed as well as a resection of the infrapatellar fat pad. The distal femoral fat pad proximal to the trochlea was also resected using cautery. The soft tissues were elevated off the medial as pect of the proximal tibia using a Schafer elevator ensuring that we did not transect the medial collateral ligament. Upon initial evaluation range of motion was approximately 5 degrees to 120 degrees of flexion. There were signs of advanced arthrosis in the medial, lateral, and patellofemoral joint spaces. There is also noted synovial inflammation. There were large marginal osteophytes which were removed with a rongeur. The knee was hyperflexed and the patella was tucked laterally. Protecting the surrounding soft tissues with Homans, an entry drill was placed down the femoral canal using Whitesides line for guidance into the entry point. The intramedullary femoral alignment elizabeth was utilized in order to cut the distal femur in 5 degrees of valgus resecting 10 millimeters of bone. Next the distal femur was sized to a size 8. A posterior referencing guide was utilized to place the distal femoral cutting block in 3 degrees of external rotation. This was pinned into place. The rotation was confirmed both visually and based on anatomic landmarks. The 4 in 1 cutting jig of the appropriate size was utilized in order to make all bony cuts. The camilo wing was used to ensure no notching. Retractors were utilized in order to protect surrounding soft tissues. This cut did not result in any excessive notching. We then cut the box centered over the distal femur. This allowed for resection of the anterior and posterior cruciate ligaments. I then turned my attention to the preparation of the tibia. Using an extra medullary tibial alignment elizabeth, 3 millimeters of bone was r esected off the medial articular surface. This was made perpendicular to the mechanical axis of the joint with the alignment elizabeth centered over the ankle mortise. The alignment elizabeth was checked and was noted to be parallel to the mechanical axis, centered over the medial one third of the tibial tubercle, paralleling the anterior surface of the tibia. We then turned our attention to the remaining meniscus and soft tissues. These were removed while protecting the surrounding ligaments and soft tissues. The marginal osteophytes off the anterior, posterior, medial, lateral aspects of the femur and tibia were removed. The tibia was sized out to a size 7. Next the tibia was drilled and punched in an externally rotated position. Next the trial femur and a series of tibial inserts were utilized in order to allow for full extension and maximal flexion. It was found that a 6 millimeter insert gave the best range of motion and stability at multiple flexion points as well as at full extension there was less than 2 mm of gapping both medially and laterally. There is minimal anterior translation with the knee at 90 degrees of flexion and no signs of being able to dislocate the knee. The patella was then prepared. The initial thickness was 24 millimeters. This was reamed down to 14 millimeters parallel to the anterior surface of the patella. It was sized out to a size 41 medialized patella button. This was then drilled and trialed. Without any medial restraint the patella tracked appropriately and did not sublux or dislocate. At this point, it was felt these were the appropriate sized implants, and all trials were removed. The standard periarticular joint injection consisting of ropivacaine, Toradol, and epinephrine were injected into the periarticular joint tissues. The bony surfaces were thoroughly irrigated with a pulsatile-suction saline irrigation device. A bone plug from the prior resected anterior chamfer cut was placed into the drill hole at the distal femur. The bony surfaces were then dried in preparation for placement of the implants. The cement was vacuum mixed per the rn transitional care's instructions. The cement was placed on the dry bony surfaces and posterior aspect of the implants. The implants were impacted into place, removing all extruded cement. At this point anesthesia administered tranexamic acid per protocol intravenously. The knee was placed in extension with axial loading with the trial insert while the cement cured. Once the cement cured, all remaining extruded cement was removed. The knee was placed through a range of motion with the trial insert to ensure appropriate range of motion and stability. Final range of motion was approximately 0 to 130 degrees. The knee was again thoroughly irrigated with pulsatile saline lavage. The final polyethylene insert was then impacted into place ensuring no retained soft tissues. The remaining periarticular joint injection was injected. A medium Hemovac drain was placed exiting superior laterally. The knee was then placed over a triangle and the arthrotomy was closed with interrupted #1 Vicryl after thoroughly irrigating the joint. The deep and subcutaneous tissues were closed with interrupted 0 and 3-0 Vicryl respectively. Skin was closed with a running subcutaneous 3-0 Monocryl and Prineo Dermabond dressing. 4 x 4's, Sof-Rol, and a full leg Neal wrap were applied. All sponge, needle, blade, and instrument counts were correct prior to closing the wounds. Postoperative condition: The patient was awoken and transferred to the postanesthesia care unit in stable condition. Plan is to be admitted to the inpatient medical/surgical floor postoperatively for 24 hours of IV antibiotics, physical therapy, occupational therapy, and medical comanagement. Patient will be weightbearing as tolerated with range of motion as tolerated. DVT prophylaxis will be with SCDs, JOHNNY hose, and pharmacological anticoagulation. Anticipated hospital stay is approximately 1-3 days.
[2020-11-10] MEDS ORDERED: POLYETHYLENE GLYCOL 3350 119 GM BTL PO PRN (11:59)
--- NOTE | 2020-11-10 13:02 | ANES ---
Post Anesthesia Discharge - Transfer of Care Transfer of Care handoff given to nurse: Yes - Discharge from PACU Discharge from PACU when meets criteria: Yes
--- NOTE | 2020-11-10 13:02 | ANES ---
Post Anesthesia Assessment - Vital Signs Vitals: Last Vital Signs Temp 36.4 C 11/10/20 12:45 Pulse 70 11/10/20 12:45 Resp 14 11/10/20 12:45 BP 120/65 11/10/20 12:45 Pulse Ox 94 11/10/20 12:45 Airway Patency: Normal - Mental Status Level Of Consciousness: Awake - Pain Level Pain Score: 0 - N/V Assessment Nausea/Vomiting Presence: None Dehydration:: No
--- NOTE | 2020-11-10 13:04 | ANES ---
Anesthesia Procedure Note Procedure Note: ANESTHESIA PROCEDURE NOTE Date of procedure: 11/10/2020. Time of procedure: 1015. Performed by: Cesario Schneider CRNA Bat Lathe Operator: Pankaj Grace RN . Preprocedure diagnosis: Right knee DJD. Post procedure diagnosis: Same. Procedure: Ultrasound-guided right adductor canal block Indications: Postoperative analgesia. Findings: Patient brought to operating room #2 and given a spinal anesthetic. Patient was placed in a supine position. Patient's right inner thigh was prepped with ChloraPrep. Ultrasound utilized to identify the saphenous nerve in the right adductor canal. A 20-gauge 4 inch regional block needle was advanced under ultrasound guidance until tip of needle was placed just proximally to saphenous nerve. A total of 30 mL of 0.25% Marcaine with epinephrine 1-200,000 was injected with adequate spread of local anesthesia noted around the nerve. Regional block needle was removed intact. EBL: Minimal. Fluids: N/A. Specimen: N/A. Post procedure condition: The patient tolerated the procedure well. No complications were noted. Thank you for this consultation Cesario Schneider CRNA
[2020-11-10] MEDS: KETOROLAC TROMETHAMINE 15 MG/ML VIAL IV SCH ×2 (13:11→19:58)
[2020-11-10] MEDS: ceFAZolin SODIUM 1 GM in DEXTROSE 5 % IN WATER 100 ML IV SCH ×4 (13:11→20:02)
[2020-11-10] MEDS: oxyCODONE HCL/ACETAMINOPHEN 1 TAB TABLET PO PRN (14:59)
[2020-11-10] MEDS: LISINOPRIL 20 MG TABLET PO SCH (20:05)
[2020-11-10] MEDS: LABETALOL HCL 200 MG TABLET PO SCH (20:05)
[2020-11-10] MEDS: MORPHINE SULFATE 15 MG TABLET.SA PO SCH (20:06)
[2020-11-10] MEDS: HYDROCORTISONE 30 APPL TUBE TP SCH (20:07)
[2020-11-10] MEDS ORDERED: SIMVASTATIN 20 MG TABLET PO SCH (21:00)
[2020-11-10] MEDS ORDERED: rOPINIRole HCL 1 MG TABLET PO SCH (21:00)
[2020-11-10] MEDS ORDERED: clonazePAM 1 MG TABLET PO SCH (21:00)
[2020-11-10] MEDS ORDERED: SENNOSIDES/DOCUSATE SODIUM 1 TAB TABLET PO SCH (21:00)
[2020-11-11] MEDS: KETOROLAC TROMETHAMINE 15 MG/ML VIAL IV SCH ×2 (01:30→07:41)
[2020-11-11] MEDS: ceFAZolin SODIUM 1 GM in DEXTROSE 5 % IN WATER 100 ML IV SCH ×2 (01:33)
[2020-11-11] MEDS: oxyCODONE HCL/ACETAMINOPHEN 1 TAB TABLET PO PRN (05:46)
[2020-11-11 06:44] LABS: Hematocrit 36.5 % (42.0-52.0); Hemoglobin 11.9 gm/dL (13.5-18.0); Mean Cell Volume 92.9 fl (78-100); Mean Corpuscular Hemoglobin 30.3 pg (27-31); Mean Corpuscular Hgb Conc 32.6 g/dl (32-36); Mean Platelet Volume 10.4 fl (8-11.3); Platelet Count 179 K/mm3 (150-450); Red Blood Count 3.93 M/mm3 (4.7-6.0); Red Cell Distribution Width 12.5 % (11.5-14.0)
[2020-11-11 06:52] LABS: Calcium * 8.8 mg/dL (7.9-10.9); Carbon Dioxide 30.7 mmol/L (24-32.6); Potassium 3.7 mmol/L (3.4-4.6)
[2020-11-11] MEDS ORDERED: LEVOTHYROXINE SODIUM 75 MCG TABLET PO SCH (07:00)
[2020-11-11] MEDS: MORPHINE SULFATE 15 MG TABLET.SA PO SCH (08:29)
[2020-11-11] MEDS: HYDROCORTISONE 30 APPL TUBE TP SCH (08:29)
[2020-11-11] MEDS: LABETALOL HCL 200 MG TABLET PO SCH (08:30)
[2020-11-11] MEDS: LISINOPRIL 20 MG TABLET PO SCH (08:32)
[2020-11-11] MEDS ORDERED: HYDROCHLOROTHIAZIDE 12.5 MG CAPSULE PO SCH (09:00)
[2020-11-11] MEDS ORDERED: amLODIPine BESYLATE 10 MG TABLET PO SCH (09:00)
[2020-11-11] MEDS ORDERED: POTASSIUM CHLORIDE 20 MEQ TABLET.SA PO SCH (09:00)
[2020-11-11] MEDS ORDERED: [UNRECOGNIZED DRUG - REMARK] PO SCH (09:00)
[2020-11-11] MEDS ORDERED: CALCIUM CARBONATE/VITAMIN D3 1 TAB TABLET PO SCH (09:00)
[2020-11-11] MEDS ORDERED: MULTIVITAMINS 1 CAP CAPSULE PO SCH (09:00)
[2020-11-11] MEDS ORDERED: ASCORBIC ACID 500 MG TABLET PO SCH (09:00)
[2020-11-11] MEDS ORDERED: SPIRONOLACTONE 25 MG TABLET PO SCH (09:00)
[2020-11-11] MEDS ORDERED: ENOXAPARIN SODIUM 40 MG/0.4 ML SYRG SC SCH (10:57)
--- NOTE | 2020-11-11 11:55 | DS ---
(1) Status post right knee replacement Problem: Acute Date of Discharge:: 11/11/20 Hospital Course: Mr. Valentino was admitted to the floor after undergoing right total knee arthroplasty. Tolerated this well. Was admitted to the floor postoperatively for 24 hours of IV antibiotics, pain control, medical comanagement, and occupational and physical therapy. OT and PT were consulted to assist with activities of daily living and ambulation. Was made weightbearing as tolerated with range of motion as tolerated. Pain was initially controlled with IV regimen. This was transitioned to oral once tolerating a by mouth intake. Was resumed on home diet and medications. Had a Salas catheter inserted and the operating room which was discontinued on postoperative day 1. A drain was placed intraoperatively into the knee which was discontinued on postoperative day 1. Lovenox SCD and JOHNNY hose were utilized for DVT prophylaxis. Vital signs remained stable to the hospital course. Serial labs were obtained which showed a final hemoglobin of 11.9 grams. BMP was reviewed and was stable. Physical examination throughout the hospital course showed an extremity that had sensation that was intact to light touch, palpable pulses, a benign wound, motor intact to the toes, ankle, and knee. Knee range of motion was approximately 5 degrees to 70 degrees. Once an oral pain regimen was tolerated and physical therapy goals were met, it was felt that they were stable for discharge to home. Instructions: Continue with weightbearing as tolerated and range of motion as tolerated. It is OK to shower on the wound if it is not draining. If you note any drainage or for comfort you can cover with dry gauze and tape. Change every 2-3 days as needed. Continue with physical therapy. Resume home diet. Report any fever over 101.5 Fahrenheit, uncontrolled pain, increased drainage, foul odor of d rainage, new or increased calf pain or shortness of breath, or any other significant complaints. A 325mg dialy aspirin will be started after finishing anticoagulation if not allergic. Continue with JOHNNY hose on the operative extremity until instructed otherwise. No driving until instructed otherwise. Follow up in approximately 10-14 days. Mr. Valentino is confined homebound due to right total knee arthroplasty. The need for detention is related to postsurgical dressing changes, assistance with activities of daily living as well as physical therapy for range of motion and progressive ambulation. The need for home health skilled services directly related to time spent [id number] with Mr. Valentino. Procedures Performed: see notes below List Procedures: Right total knee arthroplasty Results and Findings: Lab Pending Results 11/11/20 06:24: WBC 7.0, RBC 3.93 L, Hgb 11.9 L, Hct 36.5 L, MCV 92.9, MCH 30.3, MCHC 32.6, RDW 12.5, Plt Count 179, MPV 10.4 11/11/20 06:24: Sodium 141, Plasma Sodium 141, Potassium 3.7, Chloride 105, Carbon Dioxide 30.7, Anion Gap 9.0, BUN 26 H, Creatinine 1.62 H, Est GFR (Non-Af Amer) 44 L, BUN/Creatinine Ratio 16.0, Random Glucose 118 H, Calcium 8.8 Discharge Location: Home Disposition: Home Health Service Home Health Agency: [facility] Condition: Good Discharge Activity: Activity as tolerated, Weight bearing, Other - With wheeled walker Discharge Diet: General/regular food Referrals: John Crews DO [Primary Care Provider] - Additional Patient Instructions (free text): [facility] to see you at home for Physical Therapy/Nursing. They will notify you when they are coming to your home. Follow up [facility] Orthopedic office appointment on MondayNovember 27 at 8:45am. You can call your [employer] to schedule a rides to your physical therapy of office appointments. Their number is [phone]. They ask for you to call at least 3 days before your appointment. They will ask you to wear a face mask if you ride with them. Prescriptions (Any new or edited meds): Enoxaparin Sodium [Lovenox] 40 mg SC Q24H #7 disp.syrin Transmission Status: Received by [place], [place] Morphine Sulfate [Ms Contin] 15 mg PO Q12H #14 tablet.sa Transmission Status: Received by [place], [place] oxyCODONE HCL/ACETAMINOPHEN [Percocet 5 MG/325 MG] 2 tab PO Q4H PRN #56 tab PRN Reason: Moderate Pain (Pain Scale 4-6) Transmission Status: Received by [place], [place] Sennosides/Docusate Sodium [Senokot-S] 2 tab PO HS #30 tab Transmission Status: Received by [facility], [place], [place] Complete Home Medications List: Complete Home Medication List: Ascorbic Acid [Vitamin C] 1,000 mg PO DAILY 05/01/14 Garlic [Odor Free Garlic] 1,000 mg PO DAILY 05/01/14 Hydrochlorothiazide [Microzide] 12.5 mg PO DAILY 05/01/14 Multivitamins [Multivitamin Brigido] 1 cap PO DAILY 05/01/14 Spironolactone [Aldactone] 25 mg PO DAILY 05/01/14 rOPINIRole HCL [Requip] 1 mg PO HS 05/01/14 Calcium Carbonate/Vitamin D3 [Calcium 600 + D Tablet] 1 ea PO DAILY 05/13/15 clonazePAM [Klonopin] 1 mg PO HS 05/13/15 polyethylene glycol 3350 17 gram/dose oral powder 17 g PO DAILY PRN g 05/22/18 aspirin 81 mg tablet,delayed release 81 mg PO DAILY 07/24/18 CPAP Headgear 0 .ROUTE .MEDSUPPLY #1 ea 07/02/19 CPAP Mask 0 .ROUTE .MEDSUPPLY #1 ea 07/02/19 simvastatin 20 mg tablet 20 mg PO HS #90 tab 01/24/20 labetalol 200 mg tablet 200 mg PO BID #180 tab 02/05/20 lisinopril 20 mg tablet 20 mg PO BID #180 tab 02/10/20 potassium chloride 20 mEq tablet,extended release(part/cryst) 20 meq PO DAILY #90 tab 02/10/20 docusate sodium 100 mg capsule 100 mg PO DAILY #30 cap 03/24/20 hydrocortisone 1 % topical cream 1 applic TP BID #28.4 g 03/24/20 amlodipine 10 mg tablet 10 mg PO DAILY #90 tab 05/15/20 levothyroxine 75 mcg tablet 75 mcg PO DAILY #90 tab 06/08/20 Enoxaparin Sodium [Lovenox] 40 mg SC Q24H #7 disp.syrin 11/11/20 Morphine Sulfate [Ms Contin] 15 mg PO Q12H #14 tablet.sa 11/11/20 Sennosides/Docusate Sodium [Senokot-S] 2 tab PO HS #30 tab 11/11/20 oxyCODONE HCL/ACETAMINOPHEN [Percocet 5 MG/325 MG] 2 tab PO Q4H PRN #56 tab 11/11/20 Forms: Patient Portal Registration
[2020-11-11 15:13] VITALS: BP 136/66
== END 2020-11-11 15:45 | disposition home health service (06) ==
LOC: MS 08:42 → SUR 08:42
PROVIDERS: ADMIT Orthopaedic Surgery; ATTEND Orthopaedic Surgery